=== PATIENT | male | born 1955 | race Caucasian/White ===

== ENCOUNTER 2018-01-26 08:17 | Day surgery (SDC) | payer BC ==
[2018-01-26] VITALS (622 sets, daily range): BP systolic 106–144; BP diastolic 69–98; PULSE 57–97; TEMP 97.6–97.8; O2SAT 79–100
[~2018-01-26] VITALS: Ht 175.3 cm; Wt 100.0 kg
[2018-01-26] MEDS ORDERED: ASPIRIN 32325 MG/TAB PO (09:08)
[2018-01-26] MEDS ORDERED: LIPITOR 40MG TA40 MG PO (09:09)
[2018-01-26] MEDS ORDERED: MULTI VITAMINS1 TAB PO (09:09)
[2018-01-26] MEDS ORDERED: NITROSTAT0.4 MG/TAB SL (09:10)
[2018-01-26 09:15] LABS: HEMATOCRIT 43.4 % (42.0-52.0); HEMOGLOBIN 14.4 g/dl (13.5-18.0); MEAN CELL VOLUME 89 fl (80.0-100.0); MEAN CORPUSCULAR HEMOGLOBIN 30 pg (27.0-31.0); MEAN CORPUSCULAR HGB CONC 33 g/dl (33.0-37.0); MEAN PLATELET VOLUME 10.1 fl (7.4-10.4); PLATELET COUNT 201 K/mm3 (130-400); RED BLOOD COUNT 4.88 M/mm3 (4.20-5.60); REDCELL DISTRIBUTION WIDTH-CV 13.6 % (11.5-14.5)
[2018-01-26 09:21] LABS: CALCIUM 9.4 mg/dL (8.4-10.2); CREATININE, serum 1.16 mg/dL (0.66-1.25)
[2018-01-26 09:24] LABS: PROTHROMBIN TIME 11.7 SECONDS (9.7-12.8)
[2018-01-27] VITALS (538 sets, daily range): BP systolic 102–143; BP diastolic 61–89; PULSE 57–92; TEMP 97.8–99.5; O2SAT 91–100
[2018-01-27 05:50] LABS: BASO % 0.4 % (0.0-2.0); EOS # 0.2 (0.0-0.7); EOS % 2.4 % (0-4.0); GRAN # 4.6 (1.4-6.5); GRAN % 64.4 % (42.2-75.2); HEMOGLOBIN 14.7 g/dl (13.5-18.0); LYMPH # 1.9 (1.2-3.4); LYMPH % 26.5 % (20.0-51.0); MEAN CELL VOLUME 88 fl (80.0-100.0); MEAN CORPUSCULAR HEMOGLOBIN 29 pg (27.0-31.0); MEAN CORPUSCULAR HGB CONC 33 g/dl (33.0-37.0); MEAN PLATELET VOLUME 9.9 fl (7.4-10.4); MONO # 0.4 (0.1-0.6); PLATELET COUNT 194 K/mm3 (130-400); RED BLOOD COUNT 5.03 M/mm3 (4.20-5.60); REDCELL DISTRIBUTION WIDTH-CV 13.7 % (11.5-14.5)
[2018-01-27 06:06] LABS: CALCIUM 9.2 mg/dL (8.4-10.2); CREATININE, serum 1.02 mg/dL (0.66-1.25); POTASSIUM 4.2 mmol/L (3.4-5.0)
[2018-01-27] MEDS ORDERED: BRILINTA90 MG PO (09:37)
[2018-01-27] MEDS ORDERED: TOPROL XL 25MG25 MG PO (09:38)
[2018-01-27] MEDS ORDERED: ASPIRIN E.C. 8181 MG PO (09:39)
== END 2018-01-27 10:40 | disposition home or self-care (01) ==
LOC: COL.CAR 08:17 → ICU 12:15 → COL.CAR 01-27 10:40
PROVIDERS: Internal Medicine Cardiovascular Disease; Nurse Practitioner
DX: I25.110 Atherosclerotic heart disease of native coronary artery with unstable angina pectoris (principal); I07.1 Rheumatic tricuspid insufficiency; Z79.82 Long term (current) use of aspirin; I10 Essential (primary) hypertension; E78.2 Mixed hyperlipidemia; Z87.891 Personal history of nicotine dependence; Z82.49 Family history of ischemic heart disease and other diseases of the circulatory system
CPT/HCPCS: OP; C9600; J0583; J2250; J3010; Q9967